=== PATIENT | male | born 1995 | race Caucasian/White ===

== ENCOUNTER → 2016-08-30 | Day surgery (SDC) | payer BC | END | disposition home or self-care (01) | LOC: FIMAGING 10:12 | PROVIDERS: ATTEND Radiology Diagnostic Radiology | PROC: 02HV33Z Insertion of Infusion Device into Superior Vena Cava, Percutaneous Approach (ICD-10-PCS; principal; 2016-08-30) | DX: T81.4XXA Infection following a procedure, initial encounter (principal) | CPT/HCPCS: 36569; 77001; C1751 ==

== ENCOUNTER 2018-05-24 16:10 | Emergency (ER) | payer BC, OTHER ==
[2018-05-24] MEDS ORDERED: TDAP ADULT 0.5 ML INJ (BOOSTRIX) IM ONE (16:27)
--- NOTE | 2018-05-24 16:27 | EDPHY ---
H & P Time Seen by Provider: 05/24/18 16:23 HPI/ROS: HPI Upper lip injury. 23-year-old male by private vehicle. This patient was hauling old med wire fence. He had the sharp and of the wire fence stab him accidentally in the mid upper lip. He reports that he had some blood in his mouth. He does not know when his last tetanus shot was. He denies any other injury or complaint. Denies any dental injury. He is not sure if he wants sutures. He has a heavy mustache. ROS: Constitutional: No fever, no chills. No weakness. Musculoskeletal: No back pain. No neck pain. No extremity pain. Skin: No rashes. As above Neurological: No headache. No focal weakness or altered sensation. Past medical history: No significant past medical history. Social history: Here by himself. No alcohol. Nonsmoker. Physical Exam: General Appearance: Alert, no distress. This patient is responding to questions appropriately and in full sentences. This patient appears well- hydrated and well-nourished. Head: Normocephalic atraumatic. Eyes: Pupils equal and round no pallor or injection. No lid edema, erythema or injection. ENT, Mouth: He has a 2 mm in diameter puncture type injury, just above and not involving the vermilion border right mid upper lip. There is a pin prick size puncture opposite this on the mucosal side. No active hemorrhage. There is no foreign body appreciated on palpation and manipulation of this area. Mucous membranes are moist. Dentition intact. The pharyngeal tissues are unremarkable. No edema or swelling. No asymmetry suggestive of abscess. No erythema or exudates. Respiratory: There are no retractions, lungs are clear to auscultation with good air movement bilaterally. Cardiovascular: Regular rate and rhythm. No murmur. Gastrointestinal: Abdomen is soft and nontender, no masses, bowel sounds normal. No focal tenderness at McBurney's point. No Felipe sign. Neurological: Motor sensory function is grossly intact. Cranial nerves are normal. Gait is normal. Skin: Warm and dry, no rashes. Musculoskeletal: Neck is supple and nontender. Extremities are symmetrical. All joints range without pain or impingement. Psychiatric: No agitation. No depression. Database: EKG: Imaging: Procedures: Emergency department course: Triage vital signs reviewed. The wound was thoroughly irrigated with copious amounts of normal saline under high pressure. I discussed suture repair. I explained to the patient that I would have to shave part of his mustache. The patient has decided he does not want the wound to be sutured. I explained that it would heal on its own but he would have a greater scar and therefore worse cosmetic outcome than would be if I sutured it. In my professional opinion he understands this but has elected to not have it sutured. He was given a Boostrix vaccination. Wound care was discussed with him. Infection precautions reviewed. Follow-up and return to emergency department precautions discussed. All of his questions were answered. He was discharged from the emergency department in good condition. Differential Diagnosis: The differential diagnosis on this patient includes but is not limited to puncture wound to right upper lip. Retained foreign body, involvement of vermilion border unlikely.. This represents a partial list of diagnoses considered. These considerations are based on history, physical exam, past history, reassessment and diagnostic testing. Smoking Status: Current every day smoker Allergies/Adverse Reactions: No Known Allergies Allergy (Verified 05/24/18 16:24) Home Medications: Medication Instructions Recorded NO HOME MEDS 10/07/10 Departure - Departure Disposition: Home, Routine, Self-Care Clinical Impression: Puncture wound of lip Condition: Good Instructions: Puncture Wound (ED), Facial Laceration (ED) Additional Instructions: Read and follow provided instructions. Follow-up with your primary care physician next week for re-evaluation as needed. Return to the emergency department for worsening pain, swelling, discoloration, fever, drainage of pus or other serious concerns. Referrals: NONE *PRIMARY CARE P,. [Primary Care Provider] - As per Instructions
[2018-05-24 16:30] VITALS: BP 128/70
== END 2018-05-24 16:53 | disposition home or self-care (01) ==
LOC: CED 16:10
DX: S01.531A Puncture wound without foreign body of lip, initial encounter (principal); Z23 Encounter for immunization; W26.8XXA Contact with other sharp object(s), not elsewhere classified, initial encounter; Y92.9 Unspecified place or not applicable; Y93.9 Activity, unspecified; Y99.9 Unspecified external cause status